=== PATIENT | male | born 1970 | race Caucasian/White ===

== ENCOUNTER → 2020-07-01 | Outpatient (CLI) | payer OTHER ==
[~2020-07-01] MED LIST: AMOX500 PO; CEPH500 PO; CHLO25 PO; HYDACE5 PO; HYDGUAL120 PO; HYDR1TAB94 PO; LISI10 PO; NICO21TP TOP; PROACE100 PO; PROM25 PO; RXPROACE PO
== END | disposition home or self-care (01) ==
LOC: LAB SHORT 17:56 → PLD 17:56
DX: L02.31 Cutaneous abscess of buttock (principal)
CPT/HCPCS: 87070; 87075; 87076; 87077; 87186; 87205

== ENCOUNTER 2020-07-13 09:09 | Day surgery (SDC) | payer OTHER ==
[~2020-07-13] VITALS: Ht 188 cm; Wt 71.8 kg
[~2020-07-13 09:09] MED LIST changes: -LISI10 PO
[2020-07-13] MEDS ORDERED: LISI10 PO (09:26)
--- NOTE | 2020-07-13 10:12 | NUR ---
07/13/20 1012 Mahad Courtney History, Chart, Medications and Allergies reviewed before start of procedure.MONITOR INTACT WITH CONTINUOUS PULSE OXIMETRY AND INTERMITTENT BP.3-LEAD EKG REVIEWED WITH PHYSICIAN PRIOR TO START OF PROCEDURE.O2 VIA N/C INTACT THROUGHOUT SEDATION/PROCEDURE. PATIENT DETERMINED TO BE ASA APPROPRIATE FOR PROPOFOL SEDATION PRIOR TO START OF PROCEDURE BY DR. WILSON.
--- NOTE | 2020-07-13 10:41 | NUR ---
PT ARRIVES AWAKE AND ALERT p COLONOSCOPY. REQUESTS WATER ADN COFFEE, PROVIDED. DR. WILSON TO BEDSIDE FOR F/U
--- NOTE | 2020-07-13 11:04 | NUR ---
Ambulatory in Day SurgeryPatient states colon prep results clear. Lungs clear T/O to Auscultation. History, Chart, Medications and Allergies reviewed before start of procedure.Patient confirms NPO status and agrees with scheduled surgery. Pre-Op teaching done. Pt verbalizes understanding. Patient States Post-Procedure ride home has been arranged.
== END 2020-07-13 22:37 | disposition home or self-care (01) ==
LOC: ORSCMMR 09:09 → ORD 10:00 → ORSCMMR 10:00
PROVIDERS: Internal Medicine Gastroenterology
PROC: 0DJD8ZZ Inspection of Lower Intestinal Tract, Via Natural or Artificial Opening Endoscopic (ICD-10-PCS; principal; 2020-07-13 10:00)
DX: Z12.11 Encounter for screening for malignant neoplasm of colon (principal); Z80.0 Family history of malignant neoplasm of digestive organs; K63.5 Polyp of colon; D12.4 Benign neoplasm of descending colon; I10 Essential (primary) hypertension; E78.5 Hyperlipidemia, unspecified; E78.00 Pure hypercholesterolemia, unspecified; Z79.82 Long term (current) use of aspirin; Z79.899 Other long term (current) drug therapy
CPT/HCPCS: 88305; J2250; J2704; J7120

== ENCOUNTER 2024-11-28 10:24 | Emergency (ER) | payer OTHER ==
[~2024-11-28] VITALS: Ht 177.8 cm; Wt 77.1 kg
[~2024-11-28 10:24] MED LIST changes: +LISI10 PO
[2024-11-28 11:00] VITALS: BP 138/81
[2024-11-28] MEDS ORDERED: Morphine Sulfate 4 MG/1 ML Injection IV ONE ×2 (11:20→12:40)
[2024-11-28] MEDS ORDERED: Metoclopramide HCl 5MG / ML 2ML Vial IV ONE (11:20)
[2024-11-28] MEDS ORDERED: DiphenhydrAMINE HCl 50 MG/ML 1ML Vial IV ONE (11:20)
[2024-11-28] MEDS ORDERED: NS 1,000 ML IV SCH (11:20)
[2024-11-28] MEDS ORDERED: Morphine Sulfat15 MG PO (13:14)
[2024-11-28] MEDS ORDERED: ONDA4ODT MM (13:14)
== END 2024-11-28 13:50 | disposition home or self-care (01) ==
LOC: ER 10:24
DX: S06.0X0A Concussion without loss of consciousness, initial encounter (principal); S82.001A Unspecified fracture of right patella, initial encounter for closed fracture; S80.11XA Contusion of right lower leg, initial encounter; S01.111A Laceration without foreign body of right eyelid and periocular area, initial encounter; I10 Essential (primary) hypertension; E78.5 Hyperlipidemia, unspecified; Z88.0 Allergy status to penicillin; F17.200 Nicotine dependence, unspecified, uncomplicated; V21.41XA Electric (assisted) bicycle driver injured in collision with pedal cycle in traffic accident, initial encounter
CPT/HCPCS: 12013; 70450; 72125; 73562-RT; 73590; 93926; 96361-59; 96374-59; 96375-59; 96376-59; 99285-25; J1200; J2270; J2765; J7030